=== PATIENT | female | born 1995 | race African-American/Black ===

== ENCOUNTER 2018-10-29 16:14 | Emergency (ER) | payer OTHER, SELFPAY ==
[~2018-10-29] VITALS: Ht 160 cm; Wt 61.2 kg
[2018-10-29 16:25] VITALS: BP 111/54
[2018-10-29] MEDS ORDERED: IV NORMAL SALINE 1000ML BAG 1,000 ML IV ONE (16:30)
[2018-10-29] MEDS ORDERED: ONDANSETRON PF 4 MG/2 ML VIAL. IV ONE (16:30)
--- NOTE | 2018-10-29 16:32 | PHYS DOC ---
Past Medical History Past Medical History: STD Additional Past Medical Histor: clamidia Past Surgical History: Tonsillectomy Alcohol Use: None Drug Use: None Adult General Chief Complaint Chief Complaint: VOMITING IN HPI HPI Patient is a 22 year old female whom is 7 weeks presents to the ED complaining of vomiting in . Patient states this is her first . Last menstrual period was September 10. States that she's been vomiting nonstop over the last week. States she cannot keep anything down. Patient states she has not gotten set up with an [employer]. Denies vaginal bleeding/discharge, dysuria, hematuria, diarrhea, chest pain, shortness of breath, fever, headache, neck pain, abdominal pain. Review of Systems Review of Systems Constitutional: Denies fever or chills [] Eyes: Denies change in visual acuity, redness, or eye pain [] HENT: Denies nasal congestion or sore throat [] Respiratory: Denies cough or shortness of breath [] Cardiovascular: No additional information not addressed in HPI [] GI: Complains of vomiting. Denies abdominal pain, bloody stools or diarrhea [] : Denies dysuria or hematuria [] Musculoskeletal: Denies back pain or joint pain [] Integument: Denies rash or skin lesions [] Neurologic: Denies headache, focal weakness or sensory changes [] All other systems were reviewed and found to be within normal limits, except as documented in this note. Current Medications Current Medications Current Medications Medications (Trade) Dose Ordered Sig/[place] Start Time Stop Time Status Last Admin Dose Admin Ondansetron HCl (Zofran) 4 mg 1X ONCE 10/29/18 16:30 10/29/18 16:35 DC 10/29/18 16:47 4 MG Sodium Chloride 1,000 ml @ 1,000 mls/hr 1X ONCE 10/29/18 16:30 10/29/18 17:29 DC 10/29/18 16:48 1,000 MLS/HR Allergies Allergies Allergies Coded Allergies Type Severity Reaction Last Updated Verified No Known Drug Allergies 08/29/13 No Physical Exam Physical Exam Constitutional: Well developed, well nourished, no acute distress, non-toxic appearance. [] HENT: Normocephalic, atraumatic Neck: Normal range of motion, no tenderness, supple, no stridor. [] Cardiovascular:Heart rate regular rhythm, no murmur [] Lungs & Thorax: Bilateral breath sounds clear to auscultation [] Abdomen: Bowel sounds normal, soft, no tenderness, no masses, no pulsatile masses. [] : refused. Skin: Warm, dry, no erythema, no rash. [] Back: No tenderness, no CVA tenderness. [] Extremities: No tenderness, no cyanosis, no clubbing, ROM intact, no edema. [] Neurologic: Alert and oriented X 3, normal motor function, normal sensory function, no focal deficits noted. [] Psychologic: Affect normal, judgement normal, mood normal. [] Current Patient Data Vital Signs Vital Signs Date Time Temp Pulse Resp B/P (MAP) Pulse Ox O2 Delivery O2 Flow Rate FiO2 10/29/18 16:25 98.2 82 16 111/54 (73) 100 Room Air 98.2 Lab Values Laboratory Tests Test 10/29/18 16:20 10/29/18 16:24 10/29/18 16:45 10/29/18 17:17 Urine Color Yellow Urine Clarity Clear Urine pH 6.5 Urine Specific [place] 1.010 Urine Protein Negative mg/dL (NEG-TRACE) Urine Glucose (UA) Negative mg/dL (NEG) Urine Ketones (Stick) Negative mg/dL (NEG) Urine Blood Negative (NEG) Urine Nitrite Negative (NEG) Urine Bilirubin Negative (NEG) Urine Urobilinogen Dipstick 0.2 mg/dL (0.2 mg/dL) Urine Leukocyte Esterase Negative (NEG) Urine RBC Occ /HPF (0-2) Urine WBC 1-4 /HPF (0-4) Urine Squamous Epithelial Cells Occ /LPF Urine Bacteria Few /HPF (0-FEW) Urine Mucus Slight /LPF POC Urine HCG, Qualitative Hcg positive (Negative) White Blood Count 5.9 x10^3/uL (4.0-11.0) Red Blood Count 4.54 x10^6/uL (3.50-5.40) Hemoglobin 13.4 g/dL (12.0-15.5) Hematocrit 40.1 % (36.0-47.0) Mean Corpuscular Volume 88 fL (79-100) Mean Corpuscular Hemoglobin 30 pg (25-35) Mean Corpuscular Hemoglobin Concent 34 g/dL (31-37) Red Cell Distribution Width 13.7 % (11.5-14.5) Platelet Count 227 x10^3/uL (140-400) Neutrophils (%) (Auto) 65 % (31-73) Lymphocytes (%) (Auto) 26 % (24-48) Monocytes (%) (Auto) 7 % (0-9) Eosinophils (%) (Auto) 1 % (0-3) Basophils (%) (Auto) 1 % (0-3) Neutrophils # (Auto) 3.8 x10^3uL (1.8-7.7) Lymphocytes # (Auto) 1.5 x10^3/uL (1.0-4.8) Monocytes # (Auto) 0.4 x10^3/uL (0.0-1.1) Eosinophils # (Auto) 0.1 x10^3/uL (0.0-0.7) Basophils # (Auto) 0.1 x10^3/uL (0.0-0.2) Maternal Serum HCG Beta Subunit 32140 mIU/mL (0-5) H Sodium Level 140 mmol/L (136-145) Potassium Level 3.8 mmol/L (3.5-5.1) Chloride Level 105 mmol/L (98-107) Carbon Dioxide Level 22 mmol/L (21-32) Anion Gap 13 (6-14) Blood Urea Nitrogen 10 mg/dL (7-20) Creatinine 0.8 mg/dL (0.6-1.0) Estimated GFR (Cockcroft-Gault) 107.6 BUN/Creatinine Ratio 13 (6-20) Glucose Level 84 mg/dL (70-99) Calcium Level 9.0 mg/dL (8.5-10.1) Total Bilirubin 0.3 mg/dL (0.2-1.0) Aspartate Amino Transferase (AST) 15 U/L (15-37) Alanine Aminotransferase (ALT) 30 U/L (14-59) Alkaline Phosphatase 56 U/L (46-116) Total Protein 6.6 g/dL (6.4-8.2) Albumin 3.6 g/dL (3.4-5.0) Albumin/Globulin Ratio 1.2 (1.0-1.7) Laboratory Tests 10/29/18 16:45 Laboratory Tests 10/29/18 17:17 EKG EKG [] Radiology/Procedures Radiology/Procedures []OB ultrasound less than 14 weeks to include transabdominal and transvaginal imaging 10/29/2018 CLINICAL HISTORY: Pelvic/abdominal pain. First trimester . TECHNIQUE: Using the distended urinary bladder as a sonographic window, a real-time ultrasound examination of the pelvis was performed. Additionally in an attempt to better evaluate the uterus and adnexa, a transvaginal ultrasound study was performed. Multiple images were obtained. FINDINGS: A gestational sac is seen within the endometrial canal within the body/fundus of the uterus. Within this gestational sac a yolk sac and embryonic pole are seen. The CRL of this embryonic pole measures 8.8 mm. This corresponds to an estimated gestational age by ultrasound of 6 weeks 6 days plus or minus a standard deviation of 7 days. The estimated date of delivery by ultrasound is 06/18/2019. Embryonic cardiac activity is seen with a heart rate of 130 bpm. The placenta is not yet visualized. The amniotic fluid volume is within normal limits. A hypoechoic area is seen inferior to the gestational sac which measures 1.7 cm in size. This likely represents an area of subchorionic hemorrhage. The uterus is otherwise within normal limits. Both ovaries are within normal limits size. The right ovary measures 4.6 x 2.1 x 1.8 cm in size. Left ovary measures 4.3 x 3.9 x 2.1 cm in size. Within the left ovary a oval-shaped structure with internal echoes is seen which measures 2.1 cm in size. This may represent an hemorrhagic corpus corpus luteum. No free fluid is seen. IMPRESSION: Single living IUP with an estimated gestational age by ultrasound of 6 weeks 6 days plus or minus a standard deviation of 7 days. The estimated date of delivery by ultrasound 06/18/2019. Course & Med Decision Making Course & Med Decision Making Pertinent Labs and Imaging studies reviewed. (See chart for details) []Discussed lab and imaging findings with patient. Patient's symptoms improved in the ED. On reexamination, abdomen is soft nontender nondistended. No peritoneal signs. Tolerating by mouth. Patient refused pelvic exam. We'll discharge with Zofran outpatient. Discussed follow-up with ENGRAVER LETTER in one week for reevaluation. Provided contact information/education. Discussed reasons to return to the ED. Patient understands and agrees with plan. [place] Disclaimer Dragon Disclaimer This electronic medical record was generated, in whole or in part, using a voice recognition dictation system. Departure Departure Impression: Primary Impression: Vomiting during Disposition: 01 HOME, SELF-CARE Condition: IMPROVED Referrals: LULA HOLCOMB Jr, MD Patient Instructions: Scripts Ondansetron Hcl (ZOFRAN) 4 Mg Tablet 1 TAB PO Q6HRS, #20 TAB Prov: KAUR LAURA 10/29/18 KAUR LAURA October 29, 2018 16:32
[2018-10-29 16:37] LABS: BILIRUBIN,URINE NEGATIVE (NEG); CLARITY,URINE CLEAR; COLOR,URINE YELLOW; NITRITE,URINE NEGATIVE (NEG); PH,URINE 6.5; PROTEIN,URINE NEGATIVE (NEG-TRACE); UROBILINOGEN,URINE 0.2 mg/dL (0.2 mg/dL)
[2018-10-29 17:02] LABS: BASO # 0.1 x10^3/uL (0.0-0.2); BASO % 1 % (0-3); EOS # 0.1 x10^3/uL (0.0-0.7); EOS % 1 % (0-3); HEMATOCRIT 40.1 % (36.0-47.0); HEMOGLOBIN 13.4 g/dL (12.0-15.5); LYMPH # 1.5 x10^3/uL (1.0-4.8); LYMPH % 26 % (24-48); MEAN CORPUSCULAR HEMOGLOBIN 30 pg (25-35); MEAN CORPUSCULAR HGB CONC 34 g/dL (31-37); MEAN CORPUSCULAR VOLUME 88 fL (79-100); MONO # 0.4 x10^3/uL (0.0-1.1); MONO % 7 % (0-9); NEUT # 3.8 x10^3uL (1.8-7.7); NEUT % 65 % (31-73); PLATELET COUNT 227 x10^3/uL (140-400); RED BLOOD COUNT 4.54 x10^6/uL (3.50-5.40); RED CELL DISTRIBUTION WIDTH 13.7 % (11.5-14.5); WHITE BLOOD COUNT 5.9 x10^3/uL (4.0-11.0)
[2018-10-29 17:02] LABS: BACTERIA,URINE FEW /HPF (0-FEW); RBC,URINE OCC /HPF (0-2); SQUAMOUS EPITHELIAL CELL,UR OCC /LPF
--- NOTE | 2018-10-29 17:22 | RAD ---
OB ultrasound less than 14 weeks to include transabdominal and transvaginal imaging 10/29/2018 CLINICAL HISTORY: Pelvic/abdominal pain. First trimester . TECHNIQUE: Using the distended urinary bladder as a sonographic window, a real-time ultrasound examination of the pelvis was performed. Additionally in an attempt to better evaluate the uterus and adnexa, a transvaginal ultrasound study was performed. Multiple images were obtained. FINDINGS: A gestational sac is seen within the endometrial canal within the body/fundus of the uterus. Within this gestational sac a yolk sac and embryonic pole are seen. The CRL of this embryonic pole measures 8.8 mm. This corresponds to an estimated gestational age by ultrasound of 6 weeks 6 days plus or minus a standard deviation of 7 days. The estimated date of delivery by ultrasound is 06/18/2019. Embryonic cardiac activity is seen with a heart rate of 130 bpm. The placenta is not yet visualized. The amniotic fluid volume is within normal limits. A hypoechoic area is seen inferior to the gestational sac which measures 1.7 cm in size. This likely represents an area of subchorionic hemorrhage. The uterus is otherwise within normal limits. Both ovaries are within normal limits size. The right ovary measures 4.6 x 2.1 x 1.8 cm in size. Left ovary measures 4.3 x 3.9 x 2.1 cm in size. Within the left ovary a oval-shaped structure with internal echoes is seen which measures 2.1 cm in size. This may represent an hemorrhagic corpus corpus luteum. No free fluid is seen. IMPRESSION: Single living IUP with an estimated gestational age by ultrasound of 6 weeks 6 days plus or minus a standard deviation of 7 days. The estimated date of delivery by ultrasound 06/18/2019. Electronically signed by: Jose Armando James MD (10/29/2018 5:19 PM) [facility]
[2018-10-29 17:40] LABS: CREATININE 0.8 mg/dL (0.6-1.0); GFR 107.6; POTASSIUM 3.8 mmol/L (3.5-5.1)
[2018-10-29 17:45] LABS: ALBUMIN 3.6 g/dL (3.4-5.0); ALBUMIN/GLOBULIN RATIO 1.2 (1.0-1.7); TOTAL BILIRUBIN 0.3 mg/dL (0.2-1.0); TOTAL PROTEIN 6.6 g/dL (6.4-8.2)
[2018-10-29] MEDS ORDERED: ONDA4TAB7 PO (18:38)
== END 2018-10-29 18:46 | disposition home or self-care (01) ==
LOC: ER 16:14
DX: O21.8 Other vomiting complicating pregnancy (principal); Z90.89 Acquired absence of other organs; Z3A.01 Less than 8 weeks gestation of pregnancy
CPT/HCPCS: 36415; 76801; 76817; 80053; 81001; 81025; 84702; 85025; 96361; 96374; 99285; J2405; J7030

== ENCOUNTER 2018-12-05 19:43 | Emergency (ER) | payer OTHER ==
[~2018-12-05] VITALS: Ht 160 cm; Wt 61.2 kg
[~2018-12-05 19:43] MED LIST: ONDA4TAB7 PO
[2018-12-05] MEDS ORDERED: ONDANSETRON PF 4 MG/2 ML VIAL. IV ONE (20:45)
[2018-12-05 20:59] LABS: BILIRUBIN,URINE NEGATIVE (NEG); CLARITY,URINE CLEAR; COLOR,URINE YELLOW; NITRITE,URINE NEGATIVE (NEG); PROTEIN,URINE NEGATIVE (NEG-TRACE)
--- NOTE | 2018-12-05 21:02 | PHYS DOC ---
Past Medical History Past Medical History: STD Additional Past Medical Histor: CHLAMYDIA (DANNI DUMONT APRN) Past Surgical History: Tonsillectomy (DANNI DUMONT APRN) Smoking: Cigarettes, Less than 1pk/day Alcohol Use: None Drug Use: None (DANNI DUMONT APRN) Adult General Chief Complaint Chief Complaint: VOMITING IN HPI HPI Patient is a 22 year old female who states that she is 12 weeks who presents for nausea. States that she's been unable to hold anything down today. Seen in the ER several weeks ago and was given a prescription for Zofran his been using this at home. States that she does not appointment to see her AGRICULTURE LABORATORY TECHNICIAN to the in the month. For her however she ran out so she no longer been able to use it. Denies any pain at this time, denies vaginal bleeding. (DANNI DUMONT APRN) Review of Systems Review of Systems Constitutional: Denies fever or chills [] Eyes: Denies change in visual acuity, redness, or eye pain [] HENT: Denies nasal congestion or sore throat [] Respiratory: Denies cough or shortness of breath [] Cardiovascular: No additional information not addressed in HPI [] GI: Reports Nausea, Denies abdominal pain, vomiting, bloody stools or diarrhea [] : Denies dysuria or hematuria [] Musculoskeletal: Denies back pain or joint pain [] Integument: Denies rash or skin lesions [] Neurologic: Denies headache, focal weakness or sensory changes [] Endocrine: Denies polyuria or polydipsia [] Complete systems were reviewed and found to be within normal limits, except as documented in this note. (DANNI DUMONT APRN) Current Medications Current Medications Current Medications Medications (Trade) Dose Ordered Sig/[place] Start Time Stop Time Status Last Admin Dose Admin Ondansetron HCl (Zofran) 4 mg 1X ONCE 12/05/18 20:45 12/05/18 20:46 DC 12/05/18 21:10 4 MG (DANNI SIMON DO) Allergies Allergies Allergies Coded Allergies Type Severity Reaction Last Updated Verified No Known Drug Allergies 08/29/13 No (DANNI SIMON DO) Physical Exam Physical Exam Constitutional: Well developed, well nourished, no acute distress, non-toxic appearance. [] HENT: Normocephalic, atraumatic, bilateral external ears normal, oropharynx moist, no oral exudates, nose normal. [] Eyes: PERRLA, EOMI, conjunctiva normal, no discharge. [] Neck: Normal range of motion, no tenderness, supple, no stridor. [] Cardiovascular:Heart rate regular rhythm, no murmur [] Lungs & Thorax: Bilateral breath sounds clear to auscultation [] Abdomen: Bowel sounds normal, soft, no tenderness, no masses, no pulsatile masses. [] Skin: Warm, dry, no erythema, no rash. [] Back: No tenderness, no CVA tenderness. [] Extremities: No tenderness, no cyanosis, no clubbing, ROM intact, no edema. [] Neurologic: Alert and oriented X 3, normal motor function, normal sensory function, no focal deficits noted. [] Psychologic: Affect normal, judgement normal, mood normal. [] (DANNI DUMONT APRN) Current Patient Data Vital Signs Vital Signs Date Time Temp Pulse Resp B/P (MAP) Pulse Ox O2 Delivery O2 Flow Rate FiO2 12/05/18 21:27 86 120/69 (86) 98 12/05/18 19:50 98.9 18 Room Air 98.9 (DANNI SIMON ) Lab Values Laboratory Tests Test 12/05/18 19:47 Urine Color Yellow Urine Clarity Clear Urine pH 7.0 Urine Specific [place] 1.020 Urine Protein Negative mg/dL (NEG-TRACE) Urine Glucose (UA) Negative mg/dL (NEG) Urine Ketones (Stick) Negative mg/dL (NEG) Urine Blood Negative (NEG) Urine Nitrite Negative (NEG) Urine Bilirubin Negative (NEG) Urine Urobilinogen Dipstick 1.0 mg/dL (0.2 mg/dL) Urine Leukocyte Esterase Negative (NEG) Urine RBC 0 /HPF (0-2) Urine WBC 1-4 /HPF (0-4) Urine Squamous Epithelial Cells Occ /LPF Urine Bacteria 0 /HPF (0-FEW) (DANNI SIMON DO) Lab Values Laboratory Tests Test 12/05/18 19:47 Urine Color Yellow Urine Clarity Clear Urine pH 7.0 Urine Specific [place] 1.020 Urine Protein Negative mg/dL (NEG-TRACE) Urine Glucose (UA) Negative mg/dL (NEG) Urine Ketones (Stick) Negative mg/dL (NEG) Urine Blood Negative (NEG) Urine Nitrite Negative (NEG) Urine Bilirubin Negative (NEG) Urine Urobilinogen Dipstick 1.0 mg/dL (0.2 mg/dL) Urine Leukocyte Esterase Negative (NEG) Urine RBC 0 /HPF (0-2) Urine WBC 1-4 /HPF (0-4) Urine Squamous Epithelial Cells Occ /LPF Urine Bacteria 0 /HPF (0-FEW) (DANNI DUMONT APRN) EKG EKG [] (DANNI DUMONT APRN) Radiology/Procedures Radiology/Procedures [] (DANNI DUMONT APRN) Course & Med Decision Making Course & Med Decision Making Pertinent Labs and Imaging studies reviewed. (See chart for details) Will give Zofran, check urine, and then write a prescription for zofran for her at home. Patient is agreeable. Urine is unremarkable. Will d/c home. (DANNI DUMONT APRN) Dragon Disclaimer Dragon Disclaimer This electronic medical record was generated, in whole or in part, using a voice recognition dictation system. (DANNI DUMONT APRN) Departure Departure Impression: Primary Impression: Nausea and vomiting during Disposition: HOME, SELF-CARE Condition: STABLE Referrals: NO PCP (PCP) Patient Instructions: Nausea and Vomiting, [id number] Additional Instructions: Thank you for visiting [facility]. We appreciate you trusting us with your care. If any additional problems come up don't hesitate to return to visit us. Please follow up with your primary care provider so they can plan additional care if needed and know about the problem that you had. If symptoms worsen come back to the Emergency Department. Any concerning symptoms that start such as chest pain, shortness of air, weakness or numbness on one side of the body, running high fevers or any other concerning symptoms return to the ER. Please follow up as already scheduled with your AGRICULTURE LABORATORY TECHNICIAN. Scripts Ondansetron (ONDANSETRON ODT) 4 Mg Tab.rapdis 1 TAB PO PRN Q6-8HRS PRN for NAUSEA, #30 TAB Prov: DANNI DUMONT APRN 12/05/18 Attending Signature Attending Signature I have reviewed the PA/COMBINATION BUILDING INSPECTOR's note and plan of care. I was available for consultation as needed during the patient's visit in the emergency department. I agree with the clinical impression, plan, and disposition. (DANNI SIMON DO) DANNI DUMONT APRN Dec 05, 2018 21:02 DANNI SIMON DO Dec 07, 2018 05:11
[2018-12-05 21:07] LABS: RBC,URINE 0 /HPF (0-2)
[2018-12-05 21:08] LABS: BACTERIA,URINE 0 /HPF (0-FEW); SQUAMOUS EPITHELIAL CELL,UR OCC /LPF
[2018-12-05] MEDS ORDERED: ONDA4TAB12 PO (21:10)
[2018-12-05 21:27] VITALS: BP 120/69
== END 2018-12-05 21:32 | disposition home or self-care (01) ==
LOC: ER 19:43
DX: O21.9 Vomiting of pregnancy, unspecified (principal); O99.331 Smoking (tobacco) complicating pregnancy, first trimester; F17.210 Nicotine dependence, cigarettes, uncomplicated; Z3A.12 12 weeks gestation of pregnancy
CPT/HCPCS: 81001; 96374; 99284; J2405

== ENCOUNTER 2020-02-25 16:03 | Emergency (ER) | payer MEDICAID, OTHER ==
[~2020-02-25 16:03] MED LIST changes: +ONDA4TAB12 PO
== END 2020-02-25 17:48 | disposition left against medical advice (07) ==
LOC: ER 16:03
DX: L73.1 Pseudofolliculitis barbae (principal); Z53.21 Procedure and treatment not carried out due to patient leaving prior to being seen by health care provider